=== PATIENT | male | born 1990 | race Caucasian/White ===

== ENCOUNTER 2018-03-24 10:33 | Emergency (ER) | END 2018-03-24 14:04 | disposition home or self-care (01) ==

== ENCOUNTER 2019-02-13 15:57 | Emergency (ER) | payer SELFPAY ==
[~2019-02-13] VITALS: Ht 172.7 cm; Wt 106.7 kg
[~2019-02-13 15:57] MED LIST: ACET325T33 PO; ALBU8.5H5 INH; FAMO-96 PO; PRED20TA PO
[2019-02-13 16:00] VITALS: BP 135/59; PULSE 93; RESP 20; Ht 172.7 cm; Wt 106.7 kg
[2019-02-13] MEDS ORDERED: IBUP-1542 PO (17:30)
--- NOTE | 2019-02-13 18:56 | ERD ---
ER Documentation Chief Complaint Chief Complaint Per patient he feels like his tongue is swollen since this am HPI Patient is a 28-year-old male with no medical problems who presents with tongue pain. He said that for 2 weeks he felt like he was choking and said that his tongue is bothering him. He has had no treatment as of yet. He has no fevers and no shortness of breath. He says that his mouth feels dry. The patient does not currently have a primary doctor. ROS All systems reviewed and are negative except as per history of present illness. Medications Home Meds Active Scripts Ibuprofen* (Motrin*) 600 Mg Tab, 600 MG PO Q6H PRN for PAIN AND OR ELEVATED TEMP, #30 TAB Prov:SARTHAK CASTRO MD 02/13/19 Famotidine* (Pepcid*) 20 Mg Tablet, 20 MG PO BID for 4 Days, #30 TAB Prov:ELAN GUNDERSON PA-C 03/24/18 Acetaminophen* (Tylenol*) 325 Mg Tablet, 2 TAB PO Q6 PRN for PAIN AND OR ELEVATED TEMP, #20 TAB Prov:ELAN GUNDERSON PA-C 03/24/18 Prednisone* (Prednisone*) 20 Mg Tab, 20 MG PO BID for 3 Days, TAB Prov:MARCIANO TELLEZ PA-C 06/03/15 Albuterol Sulfate* (Albuterol Sulfate* HFA) 8.5 Gm Hfa.aer.ad, 1-2 PUFF INH Q4 PRN for SHORTNESS OF BREATH, #1 EA Prov:MARCIANO TELLEZ PA-C 06/03/15 Allergies Allergies: Coded Allergies: No Known Allergy (Unverified , 03/24/18) PMhx/Soc Medical and Surgical Hx: pt denies Medical Hx, pt denies Surgical Hx Hx Alcohol Use: No Hx Substance Use: No Hx Tobacco Use: No FmHx Family History: No diabetes Physical Exam Vitals Vital Signs Date Temp Pulse Resp B/P (MAP) Pulse Ox O2 O2 Flow FiO2 Time Delivery Rate 02/13/19 99.2 93 20 135/59 99 16:00 (84) Physical Exam Const: No acute distress Head: Atraumatic Eyes: Normal Conjunctiva ENT: Normal External Ears, Nose and Mouth. No tongue swelling, no oropharyngeal swelling, no stridor over the neck Neck: Full range of motion. No meningismus. Resp: Clear to auscultation bilaterally Cardio: Regular rate and rhythm, no murmurs Abd: Soft, non tender, non distended. Normal bowel sounds Skin: No petechiae or rashes Back: No midline or flank tenderness Ext: No cyanosis, or edema Neur: Awake and alert Psych: Normal Mood and Affect Procedures/MDM Patient is a 28-year-old male presents with tongue pain and dry mouth. There is no sign of tongue swelling. There is no sign of Bryan's angina. There is no sign of pharyngitis or peritonsillar abscess or epiglottitis. The patient is well-appearing without trouble breathing. The patient will need to follow-up with the primary doctor at the local clinics within 1 week. He will be given a prescription for ibuprofen for symptom medic relief. He may have a viral syndrome causing his symptoms. Departure Diagnosis: Primary Impression: URI (upper respiratory infection) URI type: unspecified URI Qualified Codes: J06.9 - Acute upper respiratory infection, unspecified Additional Impression: Sore throat Condition: Fair Patient Instructions: Self-Care for Sore Throats Referrals: [facility] Usted se rene hecho un examen mdico de control que le indica que no est en jessica condicin que requiera tratamiento urgente en el Departamento de Emergencia. Un estudio ms profundo y el tratamiento de brown condicin pueden esperar sin ningn riesgo hasta que usted sea atendida/o en el consultorio de brown mdico o jessica clnica. Es responsabilidad suya arreglar jessica maikol para el seguimiento del ralf. MANEJO DE CONDICIONES NO URGENTES EN EL FUTURO 1) Si usted tiene un mdico de atencin primaria: Usted debera llamar a brown mdico de atencin primaria antes de venir al departamento de emergencia. Despus de las horas de consultorio, brown doctor o brown asociado/a est disponible por telfono. El mdico o enfermero de ezio en el servicio telefnico puede asesorarle por cruz medio para atender el problema, o ralf contrario se puede programar jessica maikol. 2) Si usted no tiene un mdico de atencin primaria: Llame al mdico o clnica de referencia que aparece abajo keanu las horas de consultorio para hacer jessica maikol para que le vean. CLINICAS: [facility] [phone] [facility] [phone] [address] [facility] [phone] [address] [facility]. [place] [phone] [facility]. [place] [id number] [phone] [facility]. [phone] [address] Additional Instructions: Llame al doctor nombrado abajo (Referral Sources) MAANA y taras jessica MAIKOL PARA DENTRO DE JESSICA SEMANA. Dgale a la secretaria que nosotros le instruimos hacer esta maikol.Avise o llame si brown condicin se empeora antes de la maikol. SARTHAK CASTRO MD Feb 13, 2019 18:56
== END 2019-02-13 20:33 | disposition home or self-care (01) ==
LOC: FTE 15:57
DX: J06.9 Acute upper respiratory infection, unspecified (principal); J02.9 Acute pharyngitis, unspecified
CPT/HCPCS: 99282

== ENCOUNTER 2019-02-24 12:18 | Emergency (ER) | payer SELFPAY ==
[~2019-02-24] VITALS: Wt 104.0 kg
[~2019-02-24 12:18] MED LIST changes: +IBUP-1542 PO
[2019-02-24 12:34] VITALS: BP 126/68; PULSE 95; RESP 20
[2019-02-24] MEDS ORDERED: KETOROLAC 30 MG INJ IM STA (16:08)
[2019-02-24] MEDS ORDERED: METHOCARBAMOL 750 MG TAB PO ONE (16:30)
[2019-02-24] MEDS ORDERED: ACET-141 PO (17:07)
[2019-02-24] MEDS ORDERED: METH750T93 PO (17:07)
[2019-02-24] MEDS ORDERED: IBUP-1542 PO (17:07)
--- NOTE | 2019-02-24 17:09 | ERD ---
ER Documentation Chief Complaint Chief Complaint BACK PAIN AND DRY TONGUE ROS All systems reviewed and are negative except as per history of present illness. Medications Home Meds Active Scripts Acetaminophen* (Acetaminophen*) 500 MG Extra Strength Tablet, 500 MG PO Q4H PRN for PAIN AND OR ELEVATED TEMP, #30 TAB Prov:ANDRES YEPEZ 02/24/19 Ibuprofen* (Motrin*) 600 Mg Tab, 600 MG PO Q6H PRN for PAIN, #30 TAB Prov:YEPEZANDRES 02/24/19 Methocarbamol* (Robaxin*) 750 Mg Tablet, 750 MG PO TID PRN for MUSCLE SPASMS, #30 TAB Prov:ANDRES YEPEZ 02/24/19 Ibuprofen* (Motrin*) 600 Mg Tab, 600 MG PO Q6H PRN for PAIN AND OR ELEVATED TEMP, #30 TAB Prov:SARTHAK CASTRO MD 02/13/19 Famotidine* (Pepcid*) 20 Mg Tablet, 20 MG PO BID for 4 Days, #30 TAB Prov:ELAN GUNDERSON PA-C 03/24/18 Acetaminophen* (Tylenol*) 325 Mg Tablet, 2 TAB PO Q6 PRN for PAIN AND OR ELEVATED TEMP, #20 TAB Prov:ELAN GUNDERSON PA-C 03/24/18 Prednisone* (Prednisone*) 20 Mg Tab, 20 MG PO BID for 3 Days, TAB Prov:MARCIANO TELLEZ PA-C 06/03/15 Albuterol Sulfate* (Albuterol Sulfate* HFA) 8.5 Gm Hfa.aer.ad, 1-2 PUFF INH Q4 PRN for SHORTNESS OF BREATH, #1 EA Prov:MARCIANO TELLEZ PA-C 06/03/15 Allergies Allergies: Coded Allergies: No Known Allergy (Unverified , 03/24/18) PMhx/Soc Medical and Surgical Hx: pt denies Medical Hx, pt denies Surgical Hx Hx Alcohol Use: No Hx Substance Use: No Hx Tobacco Use: No Smoking Status: Never smoker Physical Exam Vitals Vital Signs Date Temp Pulse Resp B/P (MAP) Pulse Ox O2 O2 Flow FiO2 Time Delivery Rate 02/24/19 98.8 95 20 126/68 98 12:34 (87) Physical Exam Const: No acute distress Head: Atraumatic Eyes: Normal Conjunctiva ENT: Normal External Ears, Nose and Mouth. Neck: Full range of motion. No meningismus. Resp: Clear to auscultation bilaterally Cardio: Regular rate and rhythm, no murmurs Abd: Soft, non tender, non distended. Normal bowel sounds Skin: No petechiae or rashes Back: No midline or flank tenderness Ext: No cyanosis, or edema Neur: Awake and alert Psych: Normal Mood and Affect Results 24 hrs Current Medications Medications Dose Sig/Keira Start Time Status Last (Trade) Ordered Route PRN Stop Time Admin Dose Reason Admin Ketorolac 30 mg ONCE STAT 02/24/19 DC 02/24/19 Tromethamine IM 16:08 16:21 (Toradol) 02/24/19 16:09 750 mg ONCE ONCE 02/24/19 DC 02/24/19 Methocarbamol PO 16:30 16:21 (Robaxin) 02/24/19 16:31 Departure Diagnosis: Primary Impression: Back pain Back pain location: thoracic back pain Chronicity: unspecified Back pain laterality: right Qualified Codes: M54.6 - Pain in thoracic spine Condition: Fair Patient Instructions: Back Pain (Acute Or Chronic) Referrals: COMM[facility] CL[facility] YOU HAVE RECEIVED A MEDICAL SCREENING EXAM AND THE RESULTS INDICATE THAT YOU DO NOT HAVE A CONDITION THAT REQUIRES URGENT TREATMENT IN THE EMERGENCY DEPARTMENT. FURTHER EVALUATION AND TREATMENT OF YOUR CONDITION CAN WAIT UNTIL YOU ARE SEEN IN YOUR DOCTORS OFFICE WITHIN THE NEXT 1-2 DAYS. IT IS YOUR RESPONSIBILITY TO MAKE AN APPOINTMENT FOR FOLOW-UP CARE. IF YOU HAVE A PRIMARY DOCTOR --you should call your primary doctor and schedule an appointment IF YOU DO NOT HAVE A PRIMARY DOCTOR YOU CAN CALL OUR PHYSICIAN REFERRAL HOTLINE AT IF YOU CAN NOT AFFORD TO SEE A PHYSICIAN YOU CAN CHOSE FROM THE FOLLOWING [facility] [address] [facility] [address] [facility] [facility] [address] [facility] [facility] [address] [facility]. [facility] [address] [facility]. [facility]. [address] Additional Instructions: Llame al doctor MAANA y taras jessica MAIKOL PARA DENTRO DE 1-2 PINEDA.Dgale a la secretaria que nosotros le instruimos hacer esta maikol.Avise o llame si brown condicin se empeora antes de la maikol. Regresa aqui si peor o no mejor. ANDRES YEPEZ DO Feb 24, 2019 17:09
== END 2019-02-24 18:35 | disposition home or self-care (01) ==
LOC: FTE 12:18
DX: M54.6 Pain in thoracic spine (principal)
CPT/HCPCS: 96372; 99284; J1885